=== PATIENT | male | born 1945 ===

== ENCOUNTER 2019-11-01 20:20 | Outpatient (REF) | payer MEDICARE, BC, SELFPAY ==
[2019-11-03 16:00] LABS: SARS-CoV-2 RNA Undetected (Undetected)
== END 2019-11-01 20:40 ==
LOC: NCHCN 20:20
PROVIDERS: PCP Family Medicine; Visit Provider Nurse Practitioner Family
DX: Z20.828 Contact with and (suspected) exposure to other viral communicable diseases (principal)
CPT/HCPCS: U0003